=== PATIENT | male | born 1955 | race Caucasian/White ===

== ENCOUNTER 2017-11-16 12:13 | Emergency (ER) | payer OTHER ==
--- NOTE | 2017-11-16 13:17 | EDM.PDOC ---
<Rory Nicolas L - Last Filed: 11/16/17 14:46> ED HPI GENERAL MEDICAL PROBLEM - General Chief Complaint: Lower Extremity Injury/Pain Stated Complaint: L LEG PAIN Time Seen by Provider: 11/16/17 12:47 - Related Data Allergies Allergy/AdvReac Type Severity Reaction Status Date / Time No Known Allergies Allergy Verified 11/16/17 12:28 Home Meds: Home Meds Allopurinol [Zyloprim] 100 mg PO DAILY 11/16/17 [History] traMADol [Ultram] 50 mg PO DAILY PRN 11/16/17 [History] Course - Vital Signs Last Recorded V/S: Last Vital Signs Temp 98.5 F 11/16/17 12:24 Pulse 67 11/16/17 12:24 Resp 18 11/16/17 12:24 BP 187/85 H 11/16/17 12:24 Pulse Ox 99 11/16/17 12:24 Departure - Departure Time of Disposition: 14:46 Disposition: Home, Self-Care 01 Condition: Fair Clinical Impression: Thrombophlebitis leg superficial Qualifiers: Laterality: left Qualified Code(s): I80.02 - Phlebitis and thrombophlebitis of superficial vessels of left lower extremity - Discharge Information Referrals: Karime Painter DO [Primary Care Provider] - Forms: ED Department Discharge Additional Instructions: Elevate leg as discussed when not moving or walking, warm moist heat 3-4 times daily as best you can alternating with ice packs as needed for swelling. Ibuprofen or Motrin 800 mg 3 times daily with food. 2 of water when taking that medication. You may continue the allopurinol and other meds as previously prescribed. Follow up clinic in about one week for recheck. Return to ED if symptoms worsening in any way. <Jay Scott O - Last Filed: 11/16/17 23:27> ED HPI GENERAL MEDICAL PROBLEM - General Source of Information: Reports: Patient History Limitations: Reports: No Limitations - History of Present Illness INITIAL COMMENTS - FREE TEXT/NARRATIVE: Patient is a 61-year-old male who presents to the ED complaining of bruising and swelling to the left lower leg. Patient has history of varicosities and notes this area has grown increasingly more painful, firm, and more swollen. He was evaluated by [facility]Med doc at the [place] with concerns of possible blood clot. He was instructed to come to the ED for ultrasound. He has no history of DVT/PE. No chest pain, no shortness of breath, no tachycardia with admission to the ED. He has no history of cancer. Patient denies any recent trauma to the affected area contributing to the discomfort. He does have a history of gout and takes tramadol and allopurinol. Left Leg Pain Score (Numeric/FACES): 0 Past Medical History - Past Health History Medical/Surgical History: Denies Medical/Surgical History Social & Family History - Tobacco Use Smoking Status *Q: Never Smoker Second Hand Smoke Exposure: No - Alcohol Use Days Per Week of Alcohol Use: 0 - Recreational Drug Use Recreational Drug Use: No Review of Systems - Review of Systems Review Of Systems: ROS reveals no pertinent complaints other than HPI. ED EXAM, GENERAL - Physical Exam Exam: See Below Exam Limited By: No Limitations General Appearance: Alert, WD/WN, No Apparent Distress Ears: Hearing Grossly Normal Nose: Normal Inspection Throat/Mouth: Normal Voice, No Airway Compromise Neck: Normal Inspection, Supple Respiratory/Chest: No Respiratory Distress, Lungs Clear, Normal Breath Sounds, No Accessory Muscle Use Cardiovascular: Normal Peripheral Pulses, Regular Rate, Rhythm, No Murmur Peripheral Pulses: 1+: Posterior Tibial (L), 2+: Posterior Tibial (R), 3+: Radial (L), Radial (R) GI/Abdominal: Normal Bowel Sounds, Soft, Non-Tender, No Organomegaly, No Distention Back Exam: Normal Inspection Neurological: Alert, Oriented, CN II-XII Intact, Normal Cognition, No Motor/ Sensory Deficits, Other (On examination the left lower leg there is some varicosities present. Slight bruising noted encompassing the proximal aspect of the left lower leg medially. On palpation that is quite tender to touch. I do feel there is a hematoma present along where the varicosities are. They're quite firm. No pain along the posterior aspect of the leg upper and lower. No sensory/motor deficits distally.) Psychiatric: Normal Affect, Normal Mood Skin Exam: Warm, Dry, Intact Course - Re-Assessments/Exams Free Text/Narrative Re-Assessment/Exam: Will order ultrasound of left leg to rule out DVT. Ultrasound of the left lower leg revealed superficial thrombophlebitis within the described as area of pain and bruising. No evidence of deep venous thrombosis is seen within the left lower extremity or right common femoral vein. Dr. Nicolas has graciously offered to discharge the patient since I was attending to another patient. Discharge instructions as documented by Dr. Nicolas.
--- NOTE | 2017-11-16 14:43 | US ---
Left lower extremity deep venous ultrasound: Duplex and color flow imaging were obtained of the left common femoral, superficial femoral, proximal greater saphenous, popliteal, posterior tibial and peroneal veins. Right common femoral vein was also evaluated. Findings: Phasic flow was difficult to see within the posterior tibial peroneal veins but normal compression and augmentation are seen. Other veins show normal phasic flow, augmentation and compression. There is evidence of clot within several superficial veins within the calf region described as area of pain and bruising. Impression: 1. Superficial thrombophlebitis within the calf described as area of pain and bruising. 2. No evidence of deep venous thrombosis is seen within the left lower extremity or right common femoral vein. Diagnostic code #3
== END 2017-11-16 15:00 | disposition home or self-care (01) ==
LOC: JD.ED 12:13
DX: I80.02 Phlebitis and thrombophlebitis of superficial vessels of left lower extremity (principal); Z79.899 Other long term (current) drug therapy
CPT/HCPCS: 93971-26-LT; 93971-LT; 99284-25

== ENCOUNTER 2022-04-05 11:28 | Emergency (ER) | payer OTHER ==
[2022-04-05] MEDS ORDERED: Sodium Chloride 0.9% 10 ML Syringe FLUSH PRN ×2 (11:47→14:06)
[2022-04-05] MEDS ORDERED: Sodium Chloride 0.9% 1,000 ML IV ONE (13:43)
[2022-04-05] MEDS ORDERED: Iopamidol 755 Mg/ML 100 ML Bottle IVPUSH ONE (14:06)
[2022-04-05] MEDS ORDERED: cefTRIAXone 1 GM in Sodium Chloride 0.9% 100 ML IV ONE (14:42)
== END 2022-04-05 16:12 | disposition home or self-care (01) ==
LOC: JD.ED 11:28
DX: K04.7 Periapical abscess without sinus (principal); L03.211 Cellulitis of face
CPT/HCPCS: 36415; 70488; 80053; 83605; 83735; 85025; 86140; 87040; 96374; 99284; J0696; J3490; J7030; Q9967

== ENCOUNTER 2022-06-14 15:24 | Emergency (ER) | payer OTHER ==
[2022-06-14] MEDS ORDERED: Sodium Chloride 0.9% 10 ML Syringe FLUSH PRN (15:48)
[2022-06-14] MEDS ORDERED: Apixaban 5 MG Tab PO ONE (15:51)
[2022-06-14] MEDS ORDERED: Diltiazem 25 MG/5 ML SDV IVPUSH ONE (15:52)
== END 2022-06-14 17:27 | disposition home or self-care (01) ==
LOC: JD.ED 15:24
DX: I48.19 Other persistent atrial fibrillation (principal); I10 Essential (primary) hypertension; Z79.899 Other long term (current) drug therapy; Z79.01 Long term (current) use of anticoagulants
CPT/HCPCS: 36415; 71045; 80053; 84443; 84484; 85025; 93005; 96374; 99285; A9270; J3490

== ENCOUNTER 2022-09-01 17:20 | Emergency (ER) | payer OTHER ==
[2022-09-01] MEDS ORDERED: Lidocaine 1% with EPINEPHrine 1:100,000 10 ML MDV INJECT ONE (18:30)
== END 2022-09-01 19:26 | disposition home or self-care (01) ==
LOC: JD.ED 17:20
DX: I83.892 Varicose veins of left lower extremity with other complications (principal); I10 Essential (primary) hypertension; I48.91 Unspecified atrial fibrillation; M10.9 Gout, unspecified; Z79.899 Other long term (current) drug therapy; Z79.01 Long term (current) use of anticoagulants
CPT/HCPCS: 12001; 99283